=== PATIENT | male | born 1955 | race Caucasian/White ===

== ENCOUNTER 2017-04-15 08:31 | Emergency (ER) | payer BC ==
[~2017-04-15] VITALS: Ht 177.8 cm; Wt 56.7 kg
[~2017-04-15 08:31] MED LIST: ATEN25TA PO; FENT1PAT5 TD; FOLI1TAB94 PO; GABA-534 PO; TEMA30CA PO
--- NOTE | 2017-04-15 09:05 | NUR ---
PATIENT BIB SELF TO ER C/O LEFT SHOULDER PAIN, S/P GROUND LEVEL FALL. PATIENT STATING HE DID NOT HIT HIS HEAD. REMAINS A/OX 4. BREATHING EVEN AND UNLABORED ON ROOM AIR. NO SOB. VITALS STABLE. SAFETY AND COMFORT MEASURES IN PLACE, AWAITING MD ORDERS.
--- NOTE | 2017-04-15 09:32 | NUR ---
RESIDENTIAL SUPERVISOR AT BEDSIDE
--- NOTE | 2017-04-15 10:15 | NUR ---
SLING PLACED ON LEFT ARM
[2017-04-15] MEDS ORDERED: NICOTINE PATCH (14MG) 14 MG PATCH.TD24 TD SCH (11:00)
--- NOTE | 2017-04-15 12:06 | NUR ---
Patient discharged to home in stable condition. Written and verbal after care instructions given. Patient verbalizes understanding of instruction.
--- NOTE | 2017-04-15 12:06 | NUR ---
PT. VERBALIZED UNDERSTANDING OF AFTERCARE INSTRUCTIONS.Patient discharged to home in stable condition. Written and verbal after care instructions given. Patient verbalizes understanding of instruction.
[2017-04-15 12:12] VITALS: BP 115/48
== END 2017-04-15 12:14 | disposition home or self-care (01) ==
LOC: ER 08:33
DX: S42.202A Unspecified fracture of upper end of left humerus, initial encounter for closed fracture (principal); I10 Essential (primary) hypertension; K21.9 Gastro-esophageal reflux disease without esophagitis; K85.90 Acute pancreatitis without necrosis or infection, unspecified; M19.012 Primary osteoarthritis, left shoulder; F17.200 Nicotine dependence, unspecified, uncomplicated; Z88.6 Allergy status to analgesic agent; R56.9 Unspecified convulsions; W18.39XA Other fall on same level, initial encounter; Y93.89 Activity, other specified; Y92.89 Other specified places as the place of occurrence of the external cause; Y99.9 Unspecified external cause status
CPT/HCPCS: 71250; 72040; 72070; 72128; 73030; 99284; A4606 ×2; Z7610